=== PATIENT | female | born 1995 | race Caucasian/White ===

== ENCOUNTER 2016-05-07 11:15 | Emergency (ER) | payer SELFPAY | END 2016-05-07 12:56 | disposition home or self-care (01) | LOC: ER 11:15 | DX: S29.011A Strain of muscle and tendon of front wall of thorax, initial encounter (principal); B34.9 Viral infection, unspecified; G43.909 Migraine, unspecified, not intractable, without status migrainosus; F17.210 Nicotine dependence, cigarettes, uncomplicated; Z88.0 Allergy status to penicillin; X50.0XXA Overexertion from strenuous movement or load, initial encounter | CPT/HCPCS: 36415; 87502 ==

== ENCOUNTER 2016-06-10 16:58 | Emergency (ER) | payer OTHER | END 2016-06-10 21:05 | disposition home or self-care (01) | LOC: ER 16:58 | DX: B37.3 Candidiasis of vulva and vagina (principal); N72 Inflammatory disease of cervix uteri; J45.909 Unspecified asthma, uncomplicated; G43.909 Migraine, unspecified, not intractable, without status migrainosus; F17.210 Nicotine dependence, cigarettes, uncomplicated; Z88.0 Allergy status to penicillin | CPT/HCPCS: 36415; 96361; 96365; 96375; J0696; J1885; Q9963; Q9967 ==

== ENCOUNTER 2016-06-25 08:47 | Emergency (ER) | payer SELFPAY | END 2016-06-25 10:31 | disposition home or self-care (01) | LOC: ER 08:47 | DX: R51 Headache (principal); H53.8 Other visual disturbances; H53.149 Visual discomfort, unspecified; F17.210 Nicotine dependence, cigarettes, uncomplicated; Z88.0 Allergy status to penicillin | CPT/HCPCS: 96372; J1885 ==